=== PATIENT | female | born 1975 | race Two or more races ===

== ENCOUNTER → 2018-05-23 | Outpatient (CLI) | payer BC ==
--- NOTE | 2018-05-23 10:57 | Diagnostic Imaging Report ---
PROCEDURE: A single AP view of the chest. COMPARISON: None. INDICATIONS: PICC LINE PLACEMENT FINDINGS: Lines/tubes: Right PICC terminates in the mid SVC. Lungs: Low lung volumes. There is no evidence of pneumonia or pulmonary edema. Pleura: There is no pleural effusion or pneumothorax. Heart and mediastinum: The heart and the mediastinum are unremarkable. Bones: No acute bony abnormality. IMPRESSION: Right PICC terminates in the mid SVC. No evidence of pneumothorax. Clear lungs. Dictated by: JORY VALLECILLO M.D. on 05/23/2018 at 11:06 Electronically approved by: JORY VALLECILLO M.D. on 05/23/2018 at 11:06
== END ==
LOC: DX 09:52
PROVIDERS: ATTEND Internal Medicine Infectious Disease
DX: N39.0 Urinary tract infection, site not specified (principal)
CPT/HCPCS: 36569; 71045